=== PATIENT | female | born 1985 | race Caucasian/White ===

== ENCOUNTER 2016-05-06 15:50 | Emergency (ER) | payer OTHER ==
[~2016-05-06] VITALS: Ht 160 cm; Wt 130.4 kg
[~2016-05-06 15:50] MED LIST: ACET-1311 PO; ACYC400T PO; ALUM-30 PO; ATV/1 PO; BACI500O11 TOP; CGN1 PO; CLOZ100T PO; EMOL-19 TOP; FLUO20CA35 PO; GABA-113 PO; GLC/500 PO; HALO5TAB PO; NALT50TA5 PO; NAPR250T2 PO; NEOM-25 TOP; ONDA8TAB62 SL; PRAV20TA PO; PROP20TA67 PO; WHITGEL TOP; ZOLP10TA PO; [UNRECOGNIZED DRUG - CODE]
[2016-05-06 16:04] VITALS: TEMP 37; Ht 160 cm; Wt 130.4 kg
[2016-05-06] MEDS ORDERED: VNTHFA/IN INH (16:28)
[2016-05-06] MEDS ORDERED: ZTHM250 PO (16:28)
[2016-05-06] MEDS ORDERED: ONDA4TAB46 PO (16:28)
[2016-05-06] MEDS ORDERED: PROP1TAB PO (16:28)
[2016-05-06] MEDS ORDERED: GUAI1TAB75 PO (16:28)
[2016-05-06] MEDS ORDERED: DOCU100C31 PO (16:28)
[2016-05-06] MEDS ORDERED: LIDOCAINE/EPINEPHRINE 1% 20 ML VIAL INFIL ONE (16:30)
[2016-05-06] MEDS ORDERED: LORA-741 PO (16:31)
[2016-05-06 17:13] VITALS: BP 110/81; PULSE 67; O2SAT 98
--- NOTE | 2016-05-06 17:14 | EMERGENCY ROOM VISIT NOTE ---
History Report prepared by Scooter: Angel Castaneda Under the Supervision of: Dr. David Silva D.O. First contact with patient: 16:04 Chief Complaint: LACERATION/CUT (SUT/DERMABOND) Stated Complaint: EMOTIONAL/ ARM LAC History of Present Illness The patient is a 31 year old female who presents to the Emergency Room after cutting her left wrist two hours prior to arrival. The patient has two cuts on her left wrist. She also hit her forehead again recently. The patient is currently at the [facility]. Her tetanus shot is up to date. She is on an antibiotic currently for bronchitis. Source of History: patient Onset: two hours captain waiter/waitress Position: wrist (left) Review of Systems See HPI for pertinent positives & negatives. A total of 10 systems reviewed and were otherwise negative. Past Medical & Surgical Medical Problems: (1) Hepatitis C (2) MRSA (methicillin resistant Staphylococcus aureus) Family History No pertinent family history Social History Smoking Status: Current Every Day Smoker Marital Status: single Housing Status: other Occupation Status: unemployed Current/Historical Medications Scheduled Acyclovir (Acyclovir), 1 TAB PO BID Azithromycin (Azithromycin), 250 MG PO DAILY Clozapine (Clozaril), 300 MG PO HS Docusate Sodium (Docusate Sodium), 100 MG PO QAM Gabapentin (Neurontin), 600 MG PO TID Guaifenesin La (Guaifenesin Er), 600 MG PO Q12H Haloperidol (Haldol), 5 MG PO Q6H Metformin Hcl (Glucophage), 500 MG PO QAM Naltrexone Hcl (Naltrexone Hcl), 50 MG PO QAM Pravastatin (Pravachol ), 20 MG PO HS Propranolol (Inderal), 60 MG PO TID Scheduled PRN Acetaminophen (Tylenol), 650 MG PO Q8 PRN for Headache Albuterol Hfa (Ventolin Hfa), 2 PUFFS INH Q4H PRN for Shortness of Breath Alum & Mag Hydrox-Simethicone (Mylanta), 30 ML PO QID PRN for Indigestion Lorazepam (Ativan), 0.5 MG PO TID PRN for Anxiety Ondansetron Hcl (Zofran), 4 MG PO Q8H PRN for Nausea Allergies Coded Allergies: Clonidine (Verified Allergy, Unknown, UNKNOWN, 03/28/16) Methylphenidate (Verified Allergy, Unknown, UNKNOWN, 03/28/16) Risperidone (Verified Allergy, Unknown, UNKNOWN, 03/28/16) Ziprasidone (Verified Allergy, Unknown, UNKNOWN, 03/28/16) Physical Exam Vital Signs Date Time Temp Pulse Resp B/P Pulse Ox O2 Delivery O2 Flow Rate FiO2 05/06/16 17:13 67 18 110/81 98 05/06/16 16:04 37.0 65 18 107/83 98 Room Air Physical Exam GENERAL: Patient is awake alert in no acute distress patient is resting comfortably and showing no signs of anxiety EYES: The conjunctivae are clear. The pupils are round and reactive. EARS, NOSE, MOUTH AND THROAT: The nose is without any evidence of any deformity. Mucous membranes are moist tongue is midline NECK: The neck is nontender and supple. RESPIRATORY: Scattered rhonchi noted throughout. No tachypnea or dyspnea with conversation noted. CARDIOVASCULAR: Regular rate and rhythm noted there no murmurs rubs or gallops normal S1 normal S2 GASTROINTESTINAL: The abdomen is soft. Bowel sounds are present in all quadrants. Abdomen is nontender BACK: No midline tenderness or or step-off noted range of motion in flexion extension as well as rotation no signs of muscle spasm noted MUSCULOSKELETAL/EXTREMITIES: There is no evidence of gross deformity full range of motion is noted in the hips and shoulders. Left upper extremity was intact, no median or ulnar nerve compromise. No tendon involvement SKIN: There is no obvious evidence of any rash. There are no petechiae, pallor or cyanosis noted. Multiple linear lacerations noted on left forearm, no active bleeding was noted. Lateral laceration was approximately 4 cm in length, full thickness. Medial laceration was approximately 3 cm in length, full thickness. Multiple lacerations over body appear healed consistent with past self-injury history. NEUROLOGIC: Patient is awake alert and oriented x3 strength is symmetric patellar reflexes are 2+ bilaterally Medical Decision & Procedures Procedure Location: Left forearm medial Total length: 3 cm Complexity: Medium Verbal consent was obtained after the risks and benefits were explained, including but not limited to bleeding, scarring, infection, pain, and bone/joint /nerve damage. At this time, the risks of the procedure are less than the risks of NOT performing the procedure. A time out was taken and the correct patient and site identified. The skin was prepped with betadine. The target area was anesthetized with 10 ml of 1% lidocaine without epinephrine. Copious irrigation was performed using normal saline with betadine solution. The skin was re- prepped with betadine and a sterile field set. The wound was explored for foreign bodies and none found. Examination revealed no injury to deep structures such as tendons, bone, or significant blood vessels. Debridement was not performed. The wound edges were approximated using 8 4-0 nylon sutures and 3 4-0 vertical mattress nylon sutures. Hemostasis and excellent approximation was achieved. Antibacterial ointment and a sterile dressing applied. Detailed wound care instructions and signs and symptoms of infection reviewed with the patient. No complications and the patient tolerated the procedure well. Location: Left forearm lateral Total length: 4 cm Complexity: Medium Verbal consent was obtained after the risks and benefits were explained, including but not limited to bleeding, scarring, infection, pain, and bone/joint /nerve damage. At this time, the risks of the procedure are less than the risks of NOT performing the procedure. A time out was taken and the correct patient and site identified. The skin was prepped with betadine. The target area was anesthetized with 10 ml of 1% lidocaine without epinephrine. Copious irrigation was performed using normal saline with betadine solution. The skin was re- prepped with betadine and a sterile field set. The wound was explored for foreign bodies and none found. Examination revealed no injury to deep structures such as tendons, bone, or significant blood vessels. Debridement was not performed. The wound edges were approximated using 10, 4-0 simple interrupted nylon sutures. Hemostasis and excellent approximation was achieved. Antibacterial ointment and a sterile dressing applied. Detailed wound care instructions and signs and symptoms of infection reviewed with the patient. No complications and the patient tolerated the procedure well. ED Course 1604: The patient was evaluated in room B2. A complete history and physical examination were performed. 1630: Ordered Lidocaine/ Epinephrine 20ml INFIL. 1700: At this time, I performed two laceration repairs on the patient. See procedure notes above. 1730: Upon reevaluation, the patient is resting comfortably. I discussed the results and treatment plan with her. She verbalized agreement of the treatment plan. The patient was discharged home. Medical Decision Differential diagnoses include neurovascular compromise, tendon involvement, foreign body infection, or vascular compromise. Nursing notes reviewed. The patient is a 31-year-old female who presented to the emergency department for an evaluation after a self-inflicted laceration to her left upper extremity. The patient is currently a resident at the [facility]. She is been there for long-term and she is been here before because of self-harm and multiple lacerations to her head. The patient is had significant scarring from previous self-inflicted lacerations in the past. She had 2 lacerations to her left upper extremity. There were very deep but there is no tendon involvement clinically or on inspection after the patient was anesthetized. The lacerations were irrigated cleaned and anesthetized and sutured in usual fashion. The patient tolerated the procedure well. I placed a trip point about it dressing to the area. She was encouraged to stop smoking. She was encouraged to continue doing triple antibiotic dressing changes twice a day and have the wound rechecked again for signs of infection. She was also encouraged to have the sutures removed in 10-14 days and return to the emergency department immediately if symptoms change worsen or signs of infection develop. Impression Primary Impression: Laceration of forearm, left Additional Impression: Self-inflicted injury Scribe Attestation The scribe's documentation has been prepared under my direction and personally reviewed by me in its entirety. I confirm that the note above accurately reflects all work, treatment, procedures, and medical decision making performed by me. Departure Information Dispostion Home / Self-Care Referrals [facility] (PCP) Forms HOME CARE DOCUMENTATION FORM, IMPORTANT VISIT INFORMATION Patient Instructions A Signature Page, [facility] Additional Instructions Continue using triple antibiotic ointment and dressing changes twice a day. Have sutures removed in 10-14 days. Continue all other medications as prescribed. Encourage the patient to stop smoking. Return to the emergency department if signs of infection develop or any other worrisome symptoms arise. Continue to monitor the patient for any sharp objects which she may come in contact with.
== END 2016-05-06 17:16 | disposition home or self-care (01) ==
LOC: EDBD 15:50 → C.EDB 15:53
DX: S51.812A Laceration without foreign body of left forearm, initial encounter (principal); X78.9XXA Intentional self-harm by unspecified sharp object, initial encounter; Z86.19 Personal history of other infectious and parasitic diseases; F17.200 Nicotine dependence, unspecified, uncomplicated